=== PATIENT | female | born 1960 | race African-American/Black ===

== ENCOUNTER 2017-09-01 20:41 | Emergency (ER) | payer MEDICAID ==
[~2017-09-01] VITALS: Ht 165.1 cm; Wt 103.9 kg
[~2017-09-01 20:41] MED LIST: IBUPROFEN600 MG ORAL
[2017-09-01] MEDS ORDERED: CLINDAMYCIN HC300 MG ORAL (21:15)
[2017-09-01] MEDS ORDERED: BACTROBAN CR1 APPLIC TOPIC (21:15)
--- NOTE | 2017-09-01 21:16 | Emergency Room Report ---
History of Present Illness General Chief Complaint: Skin Rash/Abscess Source: Patient Present Illness HPI Is a 34-year-old female presents with a rash to her body. Denies any fever chills but she said at one of them is getting this problem. She may be your mind or bug bites. Denies any nausea vomiting. Denies any fever or chills. Onset for last week. She in nature. Allergies: Coded Allergies: SULFA (SULFONAMIDE ANTIBIOTICS) (Unverified Allergy, Unknown, 10/28/14) Patient History Past Medical History: see triage record, old chart reviewed Past Surgical History: none Pertinent Family History: none Social History: Denies: smoking Now: No Immunizations: other Reviewed Nursing Documentation: PMH: Agreed, PSxH: Agreed Nursing Documentation-PMH Hx Hypertension: Yes Review of Systems Eye: Denies: eye pain, blurred vision ENT: Denies: ear pain, nose congestion, throat swelling Respiratory: Denies: cough, shortness of breath Cardiovascular: Denies: chest pain, palpitations Gastrointestinal: Denies: abdominal pain, diarrhea, nausea, vomiting Musculoskeletal: Denies: back pain, joint pain Skin: Reports: rash Neurological: Denies: headache, numbness Endocrine: Denies: increased thirst, increased urine Hematologic/Lymphatic: Denies: easy bruising All Other Systems: negative except mentioned in HPI Physical Exam Vital Signs Date Time Temp Pulse Resp B/P (MAP) Pulse Ox O2 Delivery O2 Flow Rate FiO2 09/01/17 20:49 98.2 75 16 156/96 98 Room Air vitals normal except for pressure Sp02 EP Interpretation: reviewed, normal General Appearance: well appearing, no apparent distress, alert Head: normocephalic, atraumatic Eyes: bilateral eye PERRL, bilateral eye EOMI ENT: hearing grossly normal, normal pharynx Neck: full range of motion, supple, no meningismus Respiratory: chest non-tender, lungs clear, normal breath sounds Cardiovascular #1: regular rate, rhythm, no murmur Gastrointestinal: normal bowel sounds, non tender, no mass, no organomegaly, no bruit, non-distended Musculoskeletal: back normal, gait/station normal, normal range of motion Neurologic: alert, oriented x3 Psychiatric: mood/affect normal Skin: warm/dry, rash - Scabbed over 1 cm slightly raised erythematous rash to the body. No abscess. Medical Decision Making Diagnostic Impression: Primary Impression: Cellulitis Qualified Codes: L03.90 - Cellulitis, unspecified ER Course Present with rash. This may be secondary to symptom bug bites/insect bites. Could be secondary infection. Will put on antibiotics. Last Vital Signs Date Time Temp Pulse Resp B/P (MAP) Pulse Ox O2 Delivery O2 Flow Rate FiO2 09/01/17 20:49 98.2 75 16 156/96 98 Room Air Status: improved Disposition: HOME, SELF-CARE Condition: Stable Scripts Clindamycin Hcl (CLINDAMYCIN HCL) 300 Mg Capsule 300 MG ORAL THREE TIMES A DAY, #21 CAP Prov: SONYA KAY M.D. 09/01/17 Mupirocin Calcium (Bactroban) 15 Gm Cream..g. 1 APPLIC TOPIC THREE TIMES A DAY, #22 GM Prov: SONYA KAY M.D. 09/01/17 Additional Instructions: Followup with your Dr. 7 days return if symptom worsen. SONYA KAY M.D. Sep 01, 2017 21:16
[2017-09-01 21:27] VITALS: BP 156/96
== END 2017-09-01 21:28 | disposition home or self-care (01) ==
LOC: EMR 21:20
DX: L03.90 Cellulitis, unspecified (principal); I10 Essential (primary) hypertension; Z88.2 Allergy status to sulfonamides
CPT/HCPCS: 99283